=== PATIENT | female | born 1990 | race Caucasian/White ===

== ENCOUNTER 2018-02-20 05:20 | Inpatient (IN) | payer BC, OTHER ==
[2018-02-20] MEDS ORDERED: ONDANSETRON 4 MG/2 ML VIAL IVP STA (05:35)
[2018-02-20] MEDS ORDERED: SODIUM CHLORIDE 0.9% 1,000 ML IV STA ×2 (05:35)
[2018-02-20] MEDS ORDERED: MORPHINE SULFATE 2 MG/ML SYRINGE IV STA (05:35)
[2018-02-20 05:56] LABS: Basophils # (A) 0.1 k/uL (0-0.2); Basophils % (A) 1 %; Eosinophils # (A) 0.3 k/uL (0-0.7); Eosinophils % (A) 3 %; HGB 16.7 gm/dL (11.4-16.0); Lymphocytes # (A) 2.2 k/uL (1.0-4.8); Lymphocytes % (A) 24 %; MCH 30.9 pg (25.0-35.0); MCHC 35.6 g/dL (31.0-37.0); Mean Platelet Volume 6.8; Monocytes # (A) 0.4 k/uL (0-1.0); Monocytes % (A) 4 %; Neutrophils % (A) 66 %; Platelet Count 246 k/uL (150-450); RDW 12.5 % (11.5-15.5)
[2018-02-20 06:10] LABS: ALT 36 U/L (9-52); AST 30 U/L (14-36); Albumin 4.2 g/dL (3.5-5.0); Alkaline Phosphatase 58 U/L (38-126); Amylase 40 U/L (30-110); Anion Gap 14 mmol/L; Blood Urea Nitrogen 19 mg/dL (7-17); C Reactive Protein <5.0 mg/L (<10.0); Calcium 9.7 mg/dL (8.4-10.2); Carbon Dioxide 22 mmol/L (22-30); Chloride 105 mmol/L (98-107); Glucose 120 mg/dL (74-99); Lipase 136 U/L (23-300); Potassium 3.8 mmol/L (3.5-5.1); Sodium 141 mmol/L (137-145); Total Bilirubin 0.7 mg/dL (0.2-1.3); Total Protein 7.1 g/dL (6.3-8.2)
--- NOTE | 2018-02-20 06:21 | ED ---
Abdominal Pain HPI - General Source: patient Mode of arrival: ambulatory Limitations: no limitations <Daya Koehler - Last Filed: 02/20/18 07:14> <Mike Amaya - Last Filed: 02/20/18 09:15> - General Chief Complaint: Abdominal Pain Stated Complaint: ABD PAIN Time Seen by Provider: 02/20/18 05:31 - History of Present Illness Initial Comments: 27 years O female woke up a couple of hours ago with the Excruciating pain pain is located in the epigastric area and the right upper quadrant area she has no history of "gallbladder disease or appendicitis in the past no history of kidney stones been nauseous and vomited 3 times past medical history is unremarkable denies any frequency urgency dysuria (Daya Koehler) - Related Data Allergies Allergy/AdvReac Type Severity Reaction Status Date / Time No Known Allergies Allergy Verified 02/20/18 08:47 Review of Systems ROS Other: All systems not noted in ROS Statement are negative. <Daya Koehler - Last Filed: 02/20/18 07:14> ROS Other: All systems not noted in ROS Statement are negative. <Mike Amaya - Last Filed: 02/20/18 09:15> ROS Statement: Those systems with pertinent positive or pertinent negative responses have been documented in the HPI. Past Medical History Additional Past Medical History / Comment(s): PCOS, Skin disorder History of Any Multi-Drug Resistant Organisms: None Reported Past Surgical History: No Surgical Hx Reported Past Psychological History: No Psychological Hx Reported Smoking Status: Current every day smoker Past Alcohol Use History: Occasional Past Drug Use History: Marijuana <Daya Koehler - Last Filed: 02/20/18 07:14> General Exam Limitations: no limitations <Daya Koehler - Last Filed: 02/20/18 07:14> <Mike Amaya - Last Filed: 02/20/18 09:15> - General Exam Comments Initial Comments: General: The patient is awake and alert, in severe distress right upper quadrant pain is 10 over 10 Skin: Skin is warm and dry and no rashes or lesions are noted. Eye: Pupils are equal, round and reactive to light, extra-ocular movements are intact; there is normal conjunctiva bilaterally. Ears, nose, mouth and throat: There are moist mucous membranes and no oral lesions. Neck: The neck is supple, there is no tenderness or JVD. Cardiovascular: There is a regular rate and rhythm. No murmur, rub or gallop is appreciated. Respiratory: To auscultation bilateral, no wheezing no rhonchi no distress respiratory mcclure noticed Gastrointestinal: Tender in right upper quadrant area and the epigastric area Back: There is no tenderness to palpation in the midline. There is no obvious deformity. Musculoskeletal: Normal ROM, no tenderness, There is no pedal edema. There is no calf tenderness or swelling. No cords were appreciated. Neurological: CN II-XII intact, Cranial nerves III through XII are intact. There are no obvious motor or sensory deficits. Coordination appears grossly intact. Speech is normal. Psychiatric: Cooperative, appropriate mood & affect, normal judgment. (Daya Koehler) Course <Daya Koehler - Last Filed: 02/20/18 07:14> <Mike Amaya - Last Filed: 02/20/18 09:15> Vital Signs 02/20/18 05:22 Temperature 97.8 F Pulse Rate 60 Respiratory 18 Rate Blood Pressure 132/80 O2 Sat by Pulse 100 Oximetry The patient is reassessed at term 7:15 patient be endorsed to Dr. Amaya for the further evaluation and management (Daya Koehler) Medical Decision Making - Lab Data Result diagrams: 02/20/18 05:45 02/20/18 05:45 <Daya Koehler - Last Filed: 02/20/18 07:14> - Lab Data Result diagrams: 02/20/18 05:45 02/20/18 05:45 <Mike Amaya - Last Filed: 02/20/18 09:15> - Medical Decision Making Ultrasound shows cholelithiasis with some pericholecystic fluid. Patient still is mildly tender. I spoke with Dr. Alaniz she wants the patient admitted she will evaluate the patient later. (Mike Amaya) - Lab Data Lab Results 02/20/18 02/20/18 02/20/18 Range/Units 05:45 05:45 05:45 WBC 9.0 (3.8-10.6) k/uL RBC 5.40 (3.80-5.40) m/uL Hgb 16.7 H (11.4-16.0) gm/dL Hct 47.0 H (34.0-46.0) % MCV 87.0 (80.0-100.0) fL MCH 30.9 (25.0-35.0) pg MCHC 35.6 (31.0-37.0) g/dL RDW 12.5 (11.5-15.5) % Plt Count 246 (150-450) k/uL Neutrophils % 66 % Lymphocytes % 24 % Monocytes % 4 % Eosinophils % 3 % Basophils % 1 % Neutrophils # 6.0 (1.3-7.7) k/uL Lymphocytes # 2.2 (1.0-4.8) k/uL Monocytes # 0.4 (0-1.0) k/uL Eosinophils # 0.3 (0-0.7) k/uL Basophils # 0.1 (0-0.2) k/uL Sodium 141 (137-145) mmol/L Potassium 3.8 (3.5-5.1) mmol/L Chloride 105 (98-107) mmol/L Carbon Dioxide 22 (22-30) mmol/L Anion Gap 14 mmol/L BUN 19 H (7-17) mg/dL Creatinine 0.80 (0.52-1.04) mg/dL Est GFR (CKD-EPI)AfAm >90 (>60 ml/min/1.73 sqM) Est GFR (CKD-EPI)NonAf >90 (>60 ml/min/1.73 sqM) Glucose 120 H (74-99) mg/dL Plasma Lactic Acid Km 1.6 (0.7-2.0) mmol/L Calcium 9.7 (8.4-10.2) mg/dL Total Bilirubin 0.7 (0.2-1.3) mg/dL AST 30 (14-36) U/L ALT 36 (9-52) U/L Alkaline Phosphatase 58 (38-126) U/L C-Reactive Protein <5.0 (<10.0) mg/L Total Protein 7.1 (6.3-8.2) g/dL Albumin 4.2 (3.5-5.0) g/dL Amylase 40 (30-110) U/L Lipase 136 (23-300) U/L Disposition <Daya Koehler - Last Filed: 02/20/18 07:14> Time of Disposition: 09:15 <Mike Amaya - Last Filed: 02/20/18 09:15> Clinical Impression: Cholecystitis, Cholelithiasis Disposition: ADMITTED IP TO THIS HOSP Referrals: None,Stated [Primary Care Provider] - 1-2 days
--- NOTE | 2018-02-20 07:38 | XR ---
EXAMINATION TYPE: XR abdomen acute w cxr DATE OF EXAM: 02/20/2018 COMPARISON: NONE HISTORY: Pain TECHNIQUE: Single view of the chest and 2 views of the abdomen are submitted. FINDINGS: Single view of the chest fails demonstrate evidence for acute pulmonary disease. There is no evidence for pneumoperitoneum. The bowel gas pattern is unremarkable as there is air throughout nondilated small and large bowel. No sizeable air fluid levels.No mass effects are seen. No unusual calcifications. IMPRESSION: 1. Unremarkable study.
--- NOTE | 2018-02-20 08:31 | US ---
EXAMINATION TYPE: US gallbladder DATE OF EXAM: 02/20/2018 COMPARISON: NONE CLINICAL HISTORY: Pain. Pt states ABD pain with N&V EXAM MEASUREMENTS: Liver Length: 14.9 cm Gallbladder Wall: 0.6 cm CBD: 0.6 cm Right Kidney: 11.4 x 4.8 x 5.8 cm Pancreas: body wnl, head and tail obscured by overlying bowel gas Liver: wnl Gallbladder: Multiple, mobile gallstones and possible pericholecystic fluid Evidence for sonographic Soria's sign: Yes CBD: wnl Right Kidney: wnl IMPRESSION: Cholelithiasis, positive sonographic Soria sign and questionable scant pericholecystic f luid. There is no dilation of the common bile duct and therefore findings are equivocal for early acu te cholecystitis. HIDA scan and correlation with laboratory values are recommended.
[2018-02-20] MEDS ORDERED: SODIUM CHLORIDE 0.9% 1,000 ML IV ONE (09:15)
[2018-02-20 09:32] LABS: Appearance,Urine Clear (Clear); Bilirubin,Urine Negative (Negative); Blood,Urine Negative (Negative); Color,Urine Yellow; Glucose,Urine (UA) Negative (Negative); Ketones,Urine Negative (Negative); Leukocyte Esterase,Urine Negative (Negative); Nitrite,Urine Negative (Negative); PH, Urine 7.5 (5.0-8.0); Protein,Urine Negative (Negative); Specific Gravity,Urine 1.013 (1.001-1.035); Urobilinogen,Urine <2.0 mg/dL (<2.0)
[2018-02-20 10:22] VITALS: RESP 16
--- NOTE | 2018-02-20 13:12 | P.GSHP ---
<Wendy Buck - Last Filed: 02/20/18 13:01> History of Present Illness H&P Date: 02/20/18 Chief Complaint: Right upper quadrant abdominal pain 27-year-old female presented on the day of admission to the emergency room to be evaluated for intractable excruciating abdominal pain. Patient stated the pain started in the epigastric area radiated to the upper quadrant started several days ago persist became more symptomatic could not tolerate the pain came into the emergency room to be evaluated a she stated the pain was intense did vomit several times due to the pain in the right upper abdomen. In the emergency room the abdominal x-ray showed no acute process the ultrasound of the gallbladder done in the emergency room showed multiple mobile gallstones and possible pericholecystic fluid common bile duct within normal limits. Patient states prior to this episode has been in relatively good health. There is no past surgical history no family history of gallbladder disease. No appendicitis. No history of kidney stones. Patient takes no medication and has no significant past medical history patient subsequently was admitted to the services of the attending white count on admission was 9 hemoglobin 6.7 electrolytes within normal limits AST and ALT were not elevated lipase 136 and amylase 40. 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 History of Any Multi-Drug Resistant Organisms: None Reported Past Surgical History: No Surgical Hx Reported Past Anesthesia/Blood Transfusion Reactions: No Reported Reaction Additional Past Anesthesia/Blood Transfusion Reaction / Comment(s): Pt has never received blood. Smoking Status: Current every day smoker - Past Family History Father Family Medical History: CVA/TIA Additional Family Medical History / Comment(s): Father had a CVA at the age of 65yrs. He is now 67yrs. old. Mother Family Medical History: Cancer Additional Family Medical History / Comment(s): Mother of brain cancer. Medications and Allergies Home Medications Medication Instructions Recorded Confirmed Type No Known Home Medications [No 02/20/18 02/20/18 History Known Home Medications] Allergies Allergy/AdvReac Type Severity Reaction Status Date / Time No Known Allergies Allergy Verified 02/20/18 08:47 Surgical - Exam Vital Signs Temp Pulse Resp BP Pulse Ox 97.8 F 60 18 132/80 100 02/20/18 05:22 02/20/18 05:22 02/20/18 05:22 02/20/18 05:22 02/20/18 05:22 GENERAL APPEARANCE: Very pleasant 27-year-old female patient is alert, oriented , in no acute distress. Dates "abdominal pain has resolved " VITAL SIGNS: Reviewed HEENT: Head is normocephalic and atraumatic. Pupils are equal and reactive. The nares are patent. Oropharynx is clear without lesions. NECK: Supple without lymphadenopathy. Traches midline. HEART: S1, S2. Regular rate and rhythm. Denying chest pain LUNGS: No crackles or wheezes are heard. Adequate air movement ABDOMEN: Soft, mild tenderness right upper quadrant nondistended with good bowel sounds. No peritoneal signs. No palpable organomegaly or masses. no nausea vomiting currently denying any abdominal pain EXTREMITIES: Normal skin color and turgor. No cyanosis, rash, ulceration, clubbing or edema. Radial pedal pulses are 2/4 bilaterally. NEUROLOGICAL: No focal deficits. Strength and sensation are grossly intact. Results - Labs 02/20/18 05:45 02/20/18 05:45 Abnormal Lab Results - Last 24 Hours (Table) 02/20/18 02/20/18 Range/Units 05:45 05:45 Hgb 16.7 H (11.4-16.0) gm/dL Hct 47.0 H (34.0-46.0) % BUN 19 H (7-17) mg/dL Glucose 120 H (74-99) mg/dL Diabetes panel 02/20/18 Range/Units 05:45 Sodium 141 (137-145) mmol/L Potassium 3.8 (3.5-5.1) mmol/L Chloride 105 (98-107) mmol/L Carbon Dioxide 22 (22-30) mmol/L BUN 19 H (7-17) mg/dL Creatinine 0.80 (0.52-1.04) mg/dL Glucose 120 H (74-99) mg/dL Calcium 9.7 (8.4-10.2) mg/dL AST 30 (14-36) U/L ALT 36 (9-52) U/L Alkaline Phosphatase 58 (38-126) U/L Total Protein 7.1 (6.3-8.2) g/dL Albumin 4.2 (3.5-5.0) g/dL Calcium panel 02/20/18 Range/Units 05:45 Calcium 9.7 (8.4-10.2) mg/dL Albumin 4.2 (3.5-5.0) g/dL Pituitary panel 02/20/18 Range/Units 05:45 Sodium 141 (137-145) mmol/L Potassium 3.8 (3.5-5.1) mmol/L Chloride 105 (98-107) mmol/L Carbon Dioxide 22 (22-30) mmol/L BUN 19 H (7-17) mg/dL Creatinine 0.80 (0.52-1.04) mg/dL Glucose 120 H (74-99) mg/dL Calcium 9.7 (8.4-10.2) mg/dL Adrenal panel 02/20/18 Range/Units 05:45 Sodium 141 (137-145) mmol/L Potassium 3.8 (3.5-5.1) mmol/L Chloride 105 (98-107) mmol/L Carbon Dioxide 22 (22-30) mmol/L BUN 19 H (7-17) mg/dL Creatinine 0.80 (0.52-1.04) mg/dL Glucose 120 H (74-99) mg/dL Calcium 9.7 (8.4-10.2) mg/dL Total Bilirubin 0.7 (0.2-1.3) mg/dL AST 30 (14-36) U/L ALT 36 (9-52) U/L Alkaline Phosphatase 58 (38-126) U/L Total Protein 7.1 (6.3-8.2) g/dL Albumin 4.2 (3.5-5.0) g/dL Assessment and Plan Assessment: Impression Present on admission nausea vomiting right upper quadrant abdominal pain suspect due to early acute cholecystitis with cholelithiasis Ultrasound gallbladder multiple gallstones possible. periCholecystic fluid Obesity BMI 36 Plan Pain control IV fluid for hydration Possible laparoscopic cholecystectomy the timing to be determined by the surgeon Facilities Planner to address the no insurance issues DVT and GI prophylaxis Further surgical recommendations pending <Italia Son - Last Filed: 02/27/18 05:53> Surgical - Exam Vital Signs Temp Pulse Resp BP Pulse Ox 97.8 F 60 18 132/80 100 02/20/18 05:22 02/20/18 05:22 02/20/18 05:22 02/20/18 05:22 02/20/18 05:22 Results - Labs 02/20/18 05:45 02/20/18 05:45 Assessment and Plan (1) Morbid obesity due to excess calories Status: Acute Code(s): E66.01 - MORBID (SEVERE) OBESITY DUE TO EXCESS CALORIES SNOMED Code(s): 289589838 (2) Medical care unavailable Status: Acute Code(s): Z75.9 - UNSP PROBLEM RELATED TO [facility] AND [facility] SNOMED Code(s): 394774385 (3) Insurance coverage problems Status: Acute Code(s): Z59.8 - OTHER PROBLEMS RELATED TO HOUSING AND ECONOMIC CIRCUMSTANCES SNOMED Code(s): 583259854 (4) Cholecystitis Status: Acute Code(s): K81.9 - CHOLECYSTITIS, UNSPECIFIED SNOMED Code(s): 98997415 (5) Cholelithiasis Status: Acute Code(s): K80.20 - CALCULUS OF GALLBLADDER W/O CHOLECYSTITIS W/O OBSTRUCTION SNOMED Code(s): 449337339 (6) Biliary colic Status: Acute Code(s): K80.50 - CALCULUS OF BILE DUCT W/O CHOLANGITIS OR CHOLECYST W/O OBST SNOMED Code(s): 41998765
[2018-02-20 17:06] VITALS: BP 107/65; PULSE 62; TEMP 97.4
--- NOTE | 2018-02-20 20:31 | P.DS ---
Providers Date of admission: 02/20/18 09:15 Expected date of discharge: 02/20/18 Attending physician: Italia Son Primary care physician: Stated None - Discharge Diagnosis(es) (1) Morbid obesity due to excess calories Status: Acute (2) Medical care unavailable Status: Acute (3) Insurance coverage problems Status: Acute (4) Cholecystitis Status: Acute (5) Cholelithiasis Status: Acute (6) Biliary colic Status: Acute Hospital Course: The patient is a 27-year-old female was admitted secondary to symptomatic gallstones and biliary colic. Diagnostic studies were consistent with multiple gallstones. Patient reports that her pain is resolved. She will like to go home and have her surgery as outpatient. Benefits and risks of discharge including postponement of surgery reviewed. Low fat diet addressed. Financial assistance program advised. Patient clear for discharge. Pertinent Studies: Ultrasound of gallbladder consistent with gallstones Patient Condition at Discharge: Stable Plan - Discharge Summary Discharge Rx Participant: No New Discharge Prescriptions: No Action No Known Home Medications [No Known Home Medications] Discharge Medication List No Known Home Medications [No Known Home Medications] 02/20/18 [History] Follow up Appointment(s)/Referral(s): Italia Son MD [STAFF PHYSICIAN] - 02/26/18 None,Stated [Primary Care Provider] - 1-2 days Patient Instructions/Handouts: Cholecystitis (GEN), Biliary Colic (GEN), Gallstones (GEN), Low Fat Diet (GEN) Activity/Diet/Wound Care/Special Instructions: Low fat diet until surgery completed. Discharge Disposition: HOME SELF-CARE
== END 2018-02-20 21:11 | disposition home or self-care (01) | DRG 446 ==
LOC: EC 05:20 → 5MS5E 09:15
PROVIDERS: ADMIT Surgery Plastic and Reconstructive Surgery; ATTEND Surgery Plastic and Reconstructive Surgery
DX: K80.00 Calculus of gallbladder with acute cholecystitis without obstruction (principal); E28.2 Polycystic ovarian syndrome; E66.01 Morbid (severe) obesity due to excess calories; F17.200 Nicotine dependence, unspecified, uncomplicated; Z80.8 Family history of malignant neoplasm of other organs or systems; Z82.3 Family history of stroke; Z85.72 Personal history of non-Hodgkin lymphomas; Z68.36 Body mass index [BMI] 36.0-36.9, adult; Z59.8 Other problems related to housing and economic circumstances
CPT/HCPCS: 36415; 74022; 76705; 80053; 81003; 81025; 82150; 83605; 83690; 85025; 86140; 96361; 96374; 96375; 99285

== ENCOUNTER → 2022-04-13 | Outpatient (CLI) | payer BC ==
--- NOTE | 2022-04-13 11:09 | USB ---
Reason for Exam: Clinical finding. Findings: The whole breast of both breasts, the axilla of both breasts and the retroareolar of both breasts were scanned. Whole bilateral breast ultrasounds performed including scanning of the subareolar region and axilla. There is no solid or cystic lesion identified. No axillary lymphadenopathy or duct ectasia. Particular attention to the right-sided 11:00 palpable site and left-sided 9:00 palpable site. Again, no underlying focal lesion is apparent by ultrasound. Overall Assessment: Negative, BI-RAD 1 Management: Screening Mammogram of both breasts at age 38. Clinical management of any suspicious palpable areas. If there is any enlargement or suspicious clinical features develop, the areas can be rescanned. Electronically signed and approved by: Sergio Maria M.D. Radiologist
== END | disposition home or self-care (01) ==
LOC: RADUSWWP 10:22
PROVIDERS: ATTEND Family Medicine
DX: N63.0 Unspecified lump in unspecified breast (principal)